=== PATIENT | female | born 1985 | race Caucasian/White ===

== ENCOUNTER 2022-07-06 02:11 | Emergency (ER) | payer SELFPAY ==
[2022-07-06 02:51] LABS: Absolute Lymphocytes (CBC) 2.5 K/uL (0.7-4.9); Hematocrit 40.9 % (36.0-45.0); Lymphocytes % 33.1 % (15.3-44.8); MCV 86.7 fL (80-100); MPV 8.4 fL (7.6-11.3); RBC Red Blood Cell Count 4.71 M/uL (3.86-4.86)
[2022-07-06] MEDS ORDERED: NA CHLORIDE 0.9% 1,000 ML ONE (02:54)
[2022-07-06 03:19] LABS: ALT/SGPT 15 U/L (13-56); AST/SGOT 12 U/L (15-37); Albumin 4.2 g/dL (3.4-5.0); Alkaline Phosphatase 49 U/L (45-117); BUN Blood Urea Nitrogen 12 mg/dL (7-18); Bicarbonate 24 mmol/L (21-32); Bilirubin Total 0.4 mg/dL (0.2-1.0); Glomerular Filtration Rate 79 ml/min (=/>90); Glucose Level 105 mg/dL (74-106); Magnesium 2.3 mg/dL (1.6-2.4); NT PRO-BNP 86 pg/mL (<125); Potassium 3.6 mmol/L (3.5-5.1); Protein, Total 7.6 g/dL (6.4-8.2); Sodium Level 139 mmol/L (136-145)
[2022-07-06 03:20] LABS: Troponin High Sensitivity < 3.0 pg/mL (<58.9)
--- NOTE | 2022-07-06 03:55 | EDPHYS ---
Physician Documentation [facility] Name: Cassy Menchaca Age: 36 yrs Sex: Female : 1985 Arrival Date: 07/06/2022 Time: 02:12 Bed 3 Private MD: ED Physician Vinay Moss HPI: 07/06 03:21 This 36 yrs old Female presents to ER via Wheelchair with complaints of Shortness Of rt Breath, Palpitations. 03:21 Patient presents to the ED with palpitations, dyspnea, weakness. Patient reportedly has rt had intermittent palpitations for about a month now. She states that the symptoms have worsened tonight, that she felt numb all over. She reports a generalized weakness. The patient denies similar symptoms previously. Denies other acute complaints at this time, symptoms are moderate severity, no other aggravating alleviating factors. 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 - Social history:: Smoking status: Patient denies any tobacco usage or history of. - Family history:: not pertinent. ROS: 03:21 Constitutional: Negative for fever, chills, and weight loss, Abdomen/GI: Negative for rt abdominal pain, nausea, vomiting, diarrhea, and constipation, MS/Extremity: Negative for injury and deformity, Skin: Negative for injury, rash, and discoloration, Psych: Negative for depression, anxiety, suicide ideation, homicidal ideation, and hallucinations. 03:21 Cardiovascular: Positive for Chest tightness, palpitation. 03:21 Respiratory: Positive for shortness of breath, Negative for cough. 03:21 Neuro: Positive for weakness, Negative for altered mental status. Exam: 03:21 ECG was reviewed by the Attending Physician. rt 03:22 Constitutional: This is a well developed, well nourished patient who is awake, alert, rt and in no acute distress. Head/Face: Normocephalic, atraumatic. Chest/axilla: Normal chest wall appearance and motion. Nontender with no deformity. No lesions are appreciated. Cardiovascular: Regular rate and rhythm with a normal S1 and S2. No gallops, murmurs, or rubs. Normal PMI, no JVD. No pulse deficits. Respiratory: Lungs have equal breath sounds bilaterally, clear to auscultation and percussion. No rales, rhonchi or wheezes noted. No increased work of breathing, no retractions or nasal flaring. Abdomen/GI: Soft, non-tender, with normal bowel sounds. No distension or tympany. No guarding or rebound. No evidence of tenderness throughout. Skin: Warm, dry with normal turgor. Normal color with no rashes, no lesions, and no evidence of cellulitis. MS/ Extremity: Pulses equal, no cyanosis. Neurovascular intact. Full, normal range of motion. Neuro: Awake and alert, GCS 15, oriented to person, place, time, and situation. Cranial nerves II-XII grossly intact. Motor strength 5/5 in all extremities. Sensory grossly intact. Cerebellar exam normal. Normal gait. Psych: Awake, alert, with orientation to person, place and time. Behavior, mood, and affect are within normal limits. Vital Signs: 02:15 BP 112 / 65; Pulse 66; Resp 17 S; Pulse Ox 100% on R/A; ha1 02:26 BP 112 / 65; Pulse 66; Resp 17; Pulse Ox 100% ; Weight 61.69 kg; Height 5 ft. 9 in. kd3 (175.26 cm); 02:33 Temp 97.7(O); kd3 03:15 BP 102 / 54; Pulse 61; Resp 18 S; Pulse Ox 100% on R/A; ha1 04:01 BP 102 / 61; Pulse 62; Resp 15; Pulse Ox 100% on R/A; kd3 02:26 Body Mass Index 20.08 (61.69 kg, 175.26 cm) kd3 MDM: 02:20 Patient medically screened. rt 04:20 Differential diagnosis: Dysrhythmia, electrolyte disturbance, hypothyroidism, PE, rt pneumonia, pneumothorax. Data reviewed: vital signs, nurses notes, lab test result(s), EKG, radiologic studies. I considered the following discharge prescriptions or medication management in the emergency department Medications were administered in the Emergency Department. See MAR. Independent interpretation of the following test(s) in the Emergency Department X-Ray: My interpretation is No consolidation on my interpretation of the x-ray images. Test considered but Not performed: CT: D-dimer negative, CT angiogram not indicated. Counseling: I had a detailed discussion with the patient and/or guardian regarding: the historical points, exam findings, and any diagnostic results supporting the discharge/admit diagnosis, lab results, radiology results, the need for outpatient follow up, to return to the emergency department if symptoms worsen or persist or if there are any questions or concerns that arise at home. 07/06 02:28 Order name: CBC with Diff; Complete Time: 03:12 rt 07/06 02:28 Order name: CMP; Complete Time: 03:35 rt 07/06 02:28 Order name: Troponin High Sensitivity; Complete Time: 03:35 rt 07/06 02:28 Order name: BNP; Complete Time: 03:35 rt 07/06 02:28 Order name: D-Dimer; Complete Time: 03:12 rt 07/06 02:28 Order name: Test, Serum; Complete Time: 03:20 rt 07/06 02:28 Order name: Chest Single View XRAY rt 07/06 02:28 Order name: TSH; Complete Time: 03:35 rt 07/06 02:28 Order name: Magnesium; Complete Time: 03:35 rt 07/06 03:34 Order name: T4 Free; Complete Time: 03:35 EDMS EC:21 Rate is 68 beats/min. Rhythm is regular, Normal Sinus Rhythm with No ectopy. QRS [place] rt is Normal. MI interval is normal. QRS interval is normal. QT interval is prolonged at 495 msec. No Q waves. T waves are Normal. Administered Medications: 03:08 Drug: NS 0.9% 1000 ml Route: IV; Rate: 1 bolus; Site: left antecubital; ha1 03:58 Follow up: Response: No adverse reaction; IV Status: Completed infusion kd3 Disposition Summary: 07/06/22 03:55 Discharge Ordered Location: Home rt Problem: new rt Symptoms: are resolved rt Condition: Stable rt Diagnosis - Palpitations rt Followup: rt - With: Justen Paul MD - When: 2 - 3 days - Reason: Discharge Instructions: - Discharge Summary Sheet rt - Palpitations rt Forms: - Medication Reconciliation Form rt - Thank You Letter rt - Antibiotic Education rt - Prescription Opioid Use rt Signatures: Dispatcher [facility] Demi Briggs RN RN kd3 Fanny Almanzar RN RN ha1 Vinay Moss MD MD rt
--- NOTE | 2022-07-06 03:55 | ER ---
Nurse's Notes [facility] Name: Cassy Menchaca Age: 36 yrs Sex: Female : 1985 Arrival Date: 07/06/2022 Time: 02:12 Bed 3 Private MD: Diagnosis: Palpitations Presentation: 07/06 02:26 Chief complaint: Patient states: I started to feel bad around 12:47. I started having a kd3 hard time breathing but I went ahead and went to sleep but I woke up with ringing in my ears and numbness and tingling all over and worsening shortness of breath. I feel a bit better now but I still feel bad. Coronavirus screen: Vaccine status: Patient reports being unvaccinated. Ebola Screen: No symptoms or risks identified at this time. Initial Sepsis Screen: Does the patient meet any 2 criteria? No. Patient's initial sepsis screen is negative. Does the patient have a suspected source of infection? No. Patient's initial sepsis screen is negative. Risk Assessment: Do you want to hurt yourself or someone else? Patient reports no desire to harm self or others. Onset of symptoms was July 06, 2022. 02:26 Method Of Arrival: Wheelchair kd3 02:26 Acuity: [place] 3 kd3 Triage Assessment: 02:30 General: Appears uncomfortable, Behavior is calm, cooperative. Pain: Denies pain. kd3 Respiratory: Reports shortness of breath at rest Onset: The symptoms/episode began/occurred gradually, the patient has moderate shortness of breath. 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 - Social history:: Smoking status: Patient denies any tobacco usage or history of. - Family history:: not pertinent. Screenin:15 [facility] ED Fall Risk Assessment (Adult) History of falling in the last 3 months, ha1 including since admission No falls in past 3 months (0 pts) Confusion or Disorientation No (0 pts) Intoxicated or Sedated No (0 pts) Impaired Gait No (0 pts) Mobility Assist Device Used No (0 pt) Altered Elimination No (0 pt) Score/Fall Risk Level 0 - 2 = Low Risk Oriented to surroundings, Maintained a safe environment, Educated pt \T\ family on fall prevention, incl call for assistance when getting out of bed, Hourly rounding (assess needs \T\ fall precautionary measures) done. 03:40 Abuse screen: Denies threats or abuse. Denies injuries from another. Nutritional ha1 screening: No deficits noted. Tuberculosis screening: No symptoms or risk factors identified. Assessment: 02:18 General: Appears comfortable, Behavior is calm, cooperative. Pain: Denies pain. Neuro: ha1 Level of Consciousness is awake, alert, obeys commands, Oriented to person, place, time. Cardiovascular: Heart tones S1 S2 present Patient's skin is warm and dry. Rhythm is sinus rhythm. Cardiovascular: Reports chest palpitations. Respiratory: Airway is patent. Respiratory: Respiratory effort is even, unlabored, Respiratory pattern is regular, symmetrical, Breath sounds are clear bilaterally. Respiratory: Reports shortness of breath at rest. GI: Abdomen is flat, non-distended. : No signs and/or symptoms were reported regarding the genitourinary system. EENT: No deficits noted. No signs and/or symptoms were reported regarding the EENT system. Derm: Skin is pink, warm \T\ dry. Musculoskeletal: Circulation, motion, and sensation intact. Range of motion: intact in all extremities. 02:18 Reassessment: Patient and/or family updated on plan of care and expected duration. Pain ha1 level reassessed. Patient is alert, oriented x 3, equal unlabored respirations, skin warm/dry/pink. Vital Signs: 02:15 BP 112 / 65; Pulse 66; Resp 17 S; Pulse Ox 100% on R/A; ha1 02:26 BP 112 / 65; Pulse 66; Resp 17; Pulse Ox 100% ; Weight 61.69 kg; Height 5 ft. 9 in. kd3 (175.26 cm); 02:33 Temp 97.7(O); kd3 03:15 BP 102 / 54; Pulse 61; Resp 18 S; Pulse Ox 100% on R/A; ha1 04:01 BP 102 / 61; Pulse 62; Resp 15; Pulse Ox 100% on R/A; kd3 02:26 Body Mass Index 20.08 (61.69 kg, 175.26 cm) kd3 ED Course: 02:12 Patient arrived in ED. ja2 02:12 Vinay Moss MD is Attending Physician. rt 02:15 Patient has correct armband on for positive identification. Placed in gown. Bed in low ha1 position. Call light in reach. Side rails up X 1. 02:30 Triage completed. kd3 02:30 Arm band placed on right wrist. kd3 02:40 Inserted saline lock: 20 gauge in left antecubital area, using aseptic technique. Blood ha1 collected. 02:47 Fanny Almanzar RN is Primary Nurse. ha1 02:48 Chest Single View XRAY In Process Unspecified. EDMS 03:09 BNP Sent. ha1 03:09 Troponin High Sensitivity Sent. ha1 03:09 CMP Sent. ha1 03:54 Justen Paul MD is Referral Physician. rt 04:01 No provider procedures requiring assistance completed. IV discontinued, intact, kd3 bleeding controlled, No redness/swelling at site. Pressure dressing applied. Administered Medications: 03:08 Drug: NS 0.9% 1000 ml Route: IV; Rate: 1 bolus; Site: left antecubital; ha1 03:58 Follow up: Response: No adverse reaction; IV Status: Completed infusion kd3 Medication: 04:02 VIS not applicable for this client. kd3 Outcome: 03:55 Discharge ordered by . rt 04:01 Discharged to home ambulatory. kd3 04:01 Condition: stable 04:01 Discharge instructions given to patient, family, Instructed on discharge instructions, follow up and referral plans. Demonstrated understanding of instructions, follow-up care. 04:02 Patient left the ED. kd3 Signatures: Dispatcher [employer] EDMS Bernadette Jacobo2 Demi Jacques RN RN kd3 Fanny Almanzar, PADMAJA RN ha1 Vinay Moss MD MD rt
[2022-07-06 04:41] VITALS: O2SAT 100
[2022-07-06 04:43] VITALS: TEMP 97.7
[2022-07-06 04:46] VITALS: BP 102/61
--- NOTE | 2022-07-06 10:41 | RAD REPORT ---
EXAM DESCRIPTION: RAD - Chest Single View - 07/06/2022 2:46 am CLINICAL HISTORY: 36 years Female PALPITATIONS COMPARISON: None FINDINGS: Lung volumes adequate. Cardiac silhouette is normal. No pneumothorax. No large pleural effusion. No focal consolidation. No acute bony finding. IMPRESSION: No acute cardiopulmonary findings. Electronically signed by: Anabela Vences MD 07/06/2022 2:56 AM [employer] . Due to temporary technical issues with the PACS/Fluency reporting system, reports are being signed by the in house radiologists without review as a courtesy to insure prompt reporting. The interpreting radiologist is fully responsible for the content of the report.
--- NOTE | 2022-07-06 17:29 | EKG ---
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
== END 2022-07-06 04:02 | disposition home or self-care (01) ==
LOC: ER 02:11
DX: R00.2 Palpitations (principal); R07.89 Other chest pain
CPT/HCPCS: 36415; 71045; 80053; 83735; 83880; 84439; 84443; 84484; 84703; 85025; 85379; 93005; J7030

== ENCOUNTER 2023-11-08 14:57 | Emergency (ER) | payer OTHER ==
--- OUTSIDE RECORDS SUMMARY | 2023-11-08 15:00 | XMS REPORT | Continuity of Care Document ---
Author Name Unknown Address [address] [facility] [address] [place] [address] [facility] thconnect Address [address] [facility] [address] [place] [address] Care Team Providers Care Delivery Analyst Name Role Phone Brian Huang Darion Primary Care Physician TACHO HUMPHREY Attending Clinician Unavail able PARKER DREW Attending Clinician Unavailable ROSE WILKERSON Attending Clinician Unavailable PARKER DREW Attending Clinician UnavailBELLE Hurtado Attending Clinician Unavailable ANDRES HASTINGS Attending Clinician Unavailab NAI Morales Attending Clinician Unavailable White_Deandre Attending Clinician Unavailable AMBREEN_POOJA Attending Clinician Unavailable Rutledge_L Attending Clinician Unavailable Megan Crocker Attending Clinician Unavaila JO Katz Attending Clinician Unavailable White_M Admitting Clinician Unavailable AMBREEN_FARDOTTY Admitting Clinician Unavailable Rutledge_L Admitting Clinician Unavailable Payers Payer Name Policy Type Policy Number Effective Date Expirati on Date Source [facility] [id number] 2022 00:00:00 [place]MEDICAID) [id number] [facility] [id number] [place] [id number] 2019 00:00:00 [place] [id number] 2019 00:00:00 Problems Condition Name Condition Details Condition Category Status Onset Date Resolution Date Last Treatment Date Treating Clinician Comments Source Postoperat robert hypothyroi dism Postoperat robert hypothyroi dism Disease Active 8-29 00:00: 00 [facility] Papillary thyroid carcinoma Papillary thyroid carcinoma Disease Active 5- 00:00: 00 [facility] Mitral valve prolapse Mitral Valve Prolapse Problem Active 2-03 00:00: 00 [facility] Persistent insomnia Persistent Insomnia Problem Active 05-22 00:00: 00 [facility] Menstrual migraine Menstrual Migraine Problem Active 05-22 00:00: 00 [facility] Polymenorr hea Polymenorr hea Problem Active 05-22 00:00: 00 [facility] Rupture of uterus during AND/OR after labor Rupture of Uterus During AND/OR after Labor Problem Active 05-22 00:00: 00 [facility] Hot sweats Hot Sweats Problem Active 05-22 00:00: 00 [facility] Right lower quadrant pain Right Lower Quadrant Pain Problem Active 05-22 00:00: 00 [facility] History of anemia - iron deficient History of Anemia - Iron Deficient Problem Active 05-22 00:00: 00 [facility] History of tubal ligation History of Tubal Ligation Problem Active 05-22 00:00: 00 [facility] Social History Social Habit Start Date Stop Date Quantity Comments Source Sexual orientation 2022-09-19 11:36:31 Heterosexual (finding) [facility] Alcoholic beverage intake 2023-06-26 00:00:00 2023-06-26 00:00:00 Lifetime non-drinker (finding) [facility] History of Social function 2023-06-26 00:00:00 2023-06-26 00:00:00 [facility] Alcohol intake 2022-12-26 00:00:00 2022-12-26 00:00:00 Lifetime non-drinker (finding) [facility] Exposure to SARS-CoV-2 (event) 2022-09-24 00:00:00 2022-10-04 09:19:00 Not sure [facility] Tobacco use and exposure 2022-09-19 00:00:00 2022-09-19 00:00:00 Smokeless tobacco non-user [facility] Cigarettes smoked current (pack per day) - Reported 2022-09-19 00:00:00 2022-09-19 00:00:00 [facility] Cigarette pack-years 2022-09-19 00:00:00 2022-09-19 00:00:00 [facility] History of tobacco use 2015-10-07 00:00:00 2020-11-05 00:00:00 Cigarette Smoker [facility] Sex assigned at 1985 00:00:00 1985 00:00:00 F [facility] Smoking Status Start Date Stop Date Source Ex-smoker 2022-09-19 00:00:00 2022-09-19 00:00:00 [facility] Medications Ordered Medication Name Filled Medication Name Start Date Stop Date Current Medication? Ordering Clinician Indication Dosage Frequency Signature (SIG) Comments Components Source levothyroxi ne (Synthroid, Levoxyl) 100 MCG tablet 11-02 00:00: 00 Yes 88ug 88 mcg. [facility] HYDROcodone -acetaminop hen (Warner) 7.5-325 MG tablet 10-30 00:00: 00 01-03 00:00 :00 No [id number] 1{tbl} Q6H Take 1 tablet by mouth every 6 (six) hours if needed for moderate pain. [facility] ondansetron ODT (Zofran-ODT ) 4 MG disintegrat ing tablet 08-30 00:00: 00 Yes 4mg Take 4 mg by mouth every 8 (eight) hours if needed. DISSOLVE 1 TABLET IN MOUTH [facility] Vital Signs Vital Name Observation Time Observation Value Comments S ource Body height 2023-06-26 17:47:00 [facility]3 [facility] weight 2023-06-26 17:47:00 [facility]504 [facility] BMI 2023-06-26 17:47:00 20.67 kg/m2 [facility] Body height 2023-01-03 19:09:[facility] 2023-01-03 19:09:00 61.236 [facility] BMI 2023-01-03 19:09:00 19.94 [facility]m2 [facility] Systolic blood pressure 2023-01-03 19:09:00 94 mm[Hg] [facility] Diastolic blood pressure 2023-01-03 19:09:00 60 mm[Hg] [facility] Heart rate 2023-01-03 19:09:00 69 /min [facility] Body height 2022-12-26 17:01:00 175.3 [facility] Body weight 2022-12-26 17:01:00 62.143 [facility] BMI 2022-12-26 17:01:00 20.23 kg/m2 [facility] Body height 2022-11-07 19:08:00 175.3 cm [facility] Body weight 2022-11-07 19:08:00 62.143 [facility] BMI 2022-11-07 19:08:00 20.23 kg/m2 [facility] Body height 2022-10-06 19:38:00 175.3 cm [facility] Body weight 2022-10-06 19:38:00 61.689 [facility] BMI 2022-10-06 19:38:00 20.08 kg/m2 [facility] Systolic blood pressure 2022-09-19 19:31:00 95 mm[Hg] [facility] Diastolic blood pressure 2022-09-19 19:31:00 58 mm[Hg] [facility] Heart rate 2022-09-19 19:31:00 63 /min [facility] height 2022-09-19 19:31:00 175.3 [facility] Body weight 2022-09-19 19:31:00 62.143 [facility] BMI 2022-09-19 19:31:00 20.23 kg/m2 [facility] BP Diastolic 2021-08-17 00:00:00 70 mm[Hg] [facility] Height 2021-08-17 00:00:00 69 [in_i] [facility] BMI (Body Mass Index) 2021-08-17 00:00:00 18 kg/m2 [facility] BP Systolic 2021-08-17 00:00:00 113 mm[Hg] [facility] Body Weight 2021-08-17 00:00:00 122 [lb_av] [facility] BP Diastolic 2019-11-22 00:00:00 63 mm[Hg] [facility] Height 2019-11-22 00:00:00 69 [in_i] [facility] BMI (Body Mass Index) 2019-11-22 00:00:00 18.2 kg/m2 [facility] BP Systolic 2019-11-22 00:00:00 102 mm[Hg] [facility] Body Weight 2019-11-22 00:00:00 123 [lb_av] [facility] BP Diastolic 2019-11-01 00:00:00 63 mm[Hg] [facility] Height 2019-11-01 00:00:00 69 [in_i] [facility] BMI (Body Mass Index) 2019-11-01 00:00:00 18.1 kg/m2 [facility] BP Systolic 2019-11-01 00:00:00 99 mm[Hg] [facility] Body Weight 2019-11-01 00:00:00 122.4 [lb_av] [facility] BP Diastolic 2019-10-03 00:00:00 76 mm[Hg] [facility] Height 2019-10-03 00:00:00 69 [in_i] [facility] BMI (Body Mass Index) 2019-10-03 00:00:00 18.3 kg/m2 [facility] BP Systolic 2019-10-03 00:00:00 114 mm[Hg] [facility] Body Weight 2019-10-03 00:00:00 124 [lb_av] [facility] BP Diastolic 2019-06-26 00:00:00 66 mm[Hg] [facility] Height 2019-06-26 00:00:00 69 [in_i] [facility] BMI (Body Mass Index) 2019-06-26 00:00:00 18.4 kg/m2 [facility] BP Systolic 2019-06-26 00:00:00 97 mm[Hg] [facility] Body Weight 2019-06-26 00:00:00 124.9 [lb_av] [facility] Height 2019-06-10 00:00:00 69 [in_i] [facility] BP Diastolic 2019-05-31 00:00:00 69 mm[Hg] [facility] Height 2019-05-31 00:00:00 69 [in_i] [facility] BMI (Body Mass Index) 2019-05-31 00:00:00 18.5 kg/m2 [facility] BP Systolic 2019-05-31 00:00:00 105 mm[Hg] [facility] Body Weight 2019-05-31 00:00:00 125.4 [lb_av] [facility] BP Diastolic 2019-05-21 00:00:00 62 mm[Hg] [facility] Height 2019-05-21 00:00:00 69 [in_i] [facility] BMI (Body Mass Index) 2019-05-21 00:00:00 18.1 kg/m2 [facility] BP Systolic 2019-05-21 00:00:00 112 mm[Hg] [facility] Body Weight 2019-05-21 00:00:00 122.3 [lb_av] [facility] Procedures Procedure Date / Time Performed Performing Clinician Source BASIC METABOLIC PANEL 2022-10-06 21:55:00 Bernadine [facility] TSH 2022-10-06 21:55:00 Bernadine [facility] D-DIMER, QUANTITATIVE 2022-10-06 21:55:00 Bernadine [facility] unlisted imaging order 2021-08-17 00:00:00 [facility] MAMMO, diagnostic, digital, unilateral 2021-08-17 00:00:00 [facility] Hysterectomy 2019-10-07 00:00:00 [facility] unlisted imaging order 2019-05-21 00:00:00 [facility] Bilateral Tubal Ligation 2012-01-02 00:00:00 [facility] Delivery 2012-01-02 00:00:00 [facility] Delivery 2009-02-04 00:00:00 [facility] Delivery 2008-02-02 00:00:00 [facility] Encounters Start Date/Time End Date/Time Encounter Type Admission Type Attending Clinicians Care Facility Care Department Encounter ID Source 2023-03-02 08:11:17 Outpatient TACHO HUMPHREY [facility] [id number] [facility] 2022-11-16 08:52:[address] [facility] [id number] [facility] 2022-11-13 05:28:[address] [facility] [id number] [facility] 2022-11-12 21:09:[address] [facility] [id number] [facility] 2022-10-28 09:19:[address] [facility] [id number] [facility] 2022-10-25 12:40:[address] [facility] [id number] [facility] 2022-10-20 08:27:[address] [facility] [id number] [facility] 2022-10-12 05:50:[address] [facility] [id number] [facility] 2022-10-07 10:56:[address] [facility] [id number] [facility] 2022-10-06 17:40:[address] [facility] [id number] [facility] 2022-09-20 16:37:[address] [facility] [id number] [facility] 2022-09-19 11:26:[address] [facility] [id number] [facility] 2022-08-17 15:44:[address] [facility] [id number] [facility] 2024-06-24 12:30:00 2024-06-24 12:30:00 Outpatient PARKER DREW [facility] [id number] [facility] 2023-06-26 13:45:00 2023-06-26 13:45:00 Office Visit BernadineParker [facility] [id number] [id number] [facility] 2023-03-03 11:10:00 2023-04-01 23:59:00 Outpatient TACHO HUMPHREY [facility] [id number] [facility] 2023-01-03 14:00:00 2023-01-03 15:46:35 Office Visit ROSE WILKERSON [facility] [id number] [facility] 2022-12-26 12:00:00 2022-12-26 12:12:22 Office Visit Parker Drew [facility] [address] [id number] [facility] 2022-12-22 13:00:00 2022-12-22 13:00:00 Outpatient PARKER DREW [facility] [id number] [facility] 2022-11-07 14:00:00 2022-11-07 14:34:58 Office Visit Parker Drew [facility] [address] [id number] [facility] 2022-11-01 11:16:00 2022-11-02 10:01:00 Outpatient PARKER DREW [facility] [id number] [facility] 2022-11-01 11:00:00 2022-11-01 11:00:00 Outpatient PARKER DREW [facility] [id number] [facility] 2022-10-06 15:30:00 2022-10-06 16:02:22 Office Visit Parker Drew [facility] [address] [id number] [facility] 2022-10-06 14:30:00 2022-10-06 14:30:00 Outpatient BELLE SALEH [facility] [id number] [facility] 2022-09-22 12:00:00 2022-09-22 12:00:00 Outpatient PARKER DREW [facility] [id number] [facility] 2022-09-19 14:40:00 2022-09-19 15:20:15 Office Visit Rose Wilkerson [facility] [id number] [facility] 2022-08-04 08:52:00 2022-08-04 08:52:00 Outpatient ANDRES GRAY [facility] [id number] [facility] 2022-07-28 14:27:00 2022-07-28 14:27:00 Outpatient JASMIN ANDRES HASTINGS [facility] [id number] [facility] 2022-07-27 16:20:00 2022-07-27 16:20:00 Outpatient AJSMIN ANDRES HASTINGS [facility] [id number] [facility] 2021-09-15 13:56:00 2021-09-15 13:56:00 Outpatient NAI SULTANA [facility] [id number] [facility] 2021-08-19 10:38:00 2021-08-19 10:38:00 Outpatient White_M [facility] [id number] [facility] 2021-08-17 04:31:00 2021-08-17 04:31:00 Outpatient White_M [facility] [id number] [facility] 2021-08-17 00:00:00 2021-08-17 00:00:00 TENA Amador-BC: [address] [address] , Ph. [phone] MM[facility] [id number] [facility] 2021-06-02 08:11:00 2021-06-02 08:11:00 Outpatient AMBREEN_TOYA FERNANDO [id number] [facility] 2021-03-12 04:15:00 2021-03-12 04:15:00 Outpatient AMBREENWILD STORM [facility] [id number] [facility] 2020-03-25 02:28:00 2020-03-25 02:28:00 Outpatient Rutledge_L MMG [facility] [id number] [facility] 2019-11-24 11:02:00 2019-11-24 11:02:00 Outpatient Rutledge_L MMG [facility] [id number] [facility] 2019-11-22 11:17:00 2019-11-22 11:17:00 Outpatient Rutledge_L MMG [facility] [id number] [facility] 2019-11-22 00:00:00 2019-11-22 00:00:00 Megan Crocker MD: [address] [place], [place] [id number] , Ph. [phone] MM[facility] [id number] [facility] 2019-11-12 03:45:00 2019-11-12 03:45:00 Outpatient Rutledge_L [facility]G [facility] [id number] [facility] 2019-11-03 02:13:00 2019-11-03 02:13:00 Outpatient Rutledge_L MMG [facility] [id number] [facility] 2019-11-01 11:07:00 2019-11-01 11:07:00 Outpatient Rutledge_L MMG [facility] [id number] [facility] 2019-11-01 00:00:00 2019-11-01 00:00:00 Megan Crocker MD: [address] [place] [address] , Ph. [phone] MM[facility] [id number] [facility] 2019-10-29 10:30:00 2019-10-29 10:30:00 [place]patient [place] [id number] [facility] 2019-10-23 10:05:00 2019-10-23 10:05:00 Outpatient Rutledge_L MMG MMG [id number] [facility] 2019-10-15 10:12:00 2019-10-15 10:12:00 Outpatient Rutledge_L MMG MMG [id number] [facility] 2019-10-10 06:00:00 2019-10-10 06:00:00 Outpatient Megan Beach [facility] [id number] [facility] 2019-10-03 10:50:00 2019-10-03 10:50:00 Outpatient Rutledge_L MMG [facility] [id number] [facility] 2019-10-03 00:00:00 2019-10-03 00:00:00 Megan Crocker MD: [address] [place] [address] , Ph. [phone] [facility] [id number] [facility] 2019-09-26 11:29:00 2019-09-26 11:29:00 Outpatient Rutledge_L MMG [facility] [id number] [facility] 2019-09-26 11:28:00 2019-09-26 11:28:00 Outpatient Rutledge_L MMG [facility] [id number] [facility] 2019-08-01 12:49:00 2019-08-01 12:49:00 Outpatient Rutledge_L MMG MMG [id number] [facility] 2019-07-09 04:01:00 2019-07-09 04:01:00 Outpatient Rutledge_L MMG MMG [id number] [facility] 2019-06-30 11:56:00 2019-06-30 11:56:00 Outpatient Rutledge_L MMG MMG [id number] [facility] 2019-06-26 11:37:00 2019-06-26 11:37:00 Outpatient Rutledge_L MMG MMG [id number] [facility] 2019-06-26 09:00:00 2019-06-26 09:00:00 Outpatient Megan Beach [facility] [id number] [facility] 2019-06-26 00:00:00 2019-06-26 00:00:00 Megan Crocker MD: [address] [place] [phone] , Ph. [phone] MM[facility] [id number] [facility] 2019-06-13 11:19:00 2019-06-13 11:19:00 Outpatient Rutledge_L MMG MMG [id number] [facility] 2019-06-11 10:56:00 2019-06-11 10:56:00 Outpatient Rutledge_L MMG MMG [id number] [facility] 2019-06-10 04:51:00 2019-06-10 04:51:00 Outpatient Rutledge_L MMG MMG [id number] [facility] 2019-06-10 00:00:00 2019-06-10 00:00:00 Megan Crocker MD: [address] [place] [phone] , Ph. [phone] MM[facility] [id number] [facility] 2019-06-04 12:56:00 2019-06-04 12:56:00 Outpatient Rutledge_L MMG MMG [id number] [facility] 2019-06-04 12:56:00 2019-06-04 12:56:00 Outpatient Rutledge_L MMG MMG [id number] [facility] 2019-06-04 12:56:00 2019-06-04 12:56:00 Outpatient Rutledge_L MMG MMG [id number] [facility] 2019-06-03 12:06:00 2019-06-03 12:06:00 Outpatient Rutledge_L MMG MMG [id number] [facility] 2019-05-31 15:36:00 2019-05-31 15:36:00 Outpatient Megan Beach [facility] [id number] [facility] 2019-05-31 02:10:00 2019-05-31 02:10:00 Outpatient Rutledge_L MMG MMG [id number] [facility] 2019-05-31 00:00:00 2019-05-31 00:00:00 Megan Crocker MD: 600 [facility] [address] [place] [address] , Ph. [phone] [facility] [id number] [facility] 2019-05-23 12:16:00 2019-05-23 12:16:00 Outpatient Rutledge_L MMG MMG [id number] [facility] 2019-05-22 10:37:00 2019-05-22 10:37:00 Outpatient Rutledge_L MMG MMG [id number] [facility] 2019-05-21 11:30:00 2019-05-21 11:30:00 Outpatient DENG JO CARBAJAL [facility] [id number] [facility] 2019-05-21 01:43:00 2019-05-21 01:43:00 Outpatient Rutledge_L MMG MMG [id number] [facility] 2019-05-21 00:00:00 2019-05-21 00:00:00 Jo Carbajal GURVINDER: [address] [facility] [address] [address] , Ph. [phone] [facility] [id number] [facility] 2019-05-14 04:39:00 2019-05-14 04:39:00 Outpatient Rutledge_L MMG MMG [id number] [facility] Results Test Description Test Time Test Comments Results Result Co mments Source [facility] Health[facility]er, [id number] 13:00:00* Test Item Value Reference Range Interpretation Comments D-DIMER, QUANTITATIVE (test code = 88957-8) 0.57 See_Comment H The D-Dimer test is used frequently to excludean acute PE or DVT. In patients with a low tomoderate clinical risk assessment and a D-Dimerresult <0.50 mcg/mL FEU, the likelihood of a PEor DVT is very low. However, a thromboembolicevent should not be excluded solely on the basisof the D-Dimer level. Increased levels of D-Dimerare associated with a PE, DVT, DIC, malignancies,inflammati on, sepsis, surgery, trauma, ,and advancing patient age.[Chintan 2006 11:295(2):199-207] For additional information, please refer to:http://education.[employer]/faq/F AQ149(This link is being provided for informational/education al purposes only) [Automated message] The system which generated this result transmitted reference range: <0.50 mcg/mL FEU. The reference range was not used to interpret this result as normal/abnormal. RAC (test code = RAC) Performing Organization Information: ? ?Site ID: [id number] ? ?Name: [facility] ? ?Address: [address] [place] [address] ? ?Director: ANUSHA DAWKINS MD Lab Interpretation (test code = 57555-3) [facility]normal [id number] 13:00:00* Test Item Value Reference Range Interpretation Comme nts TSH (test code = 3016-3) 2.05 mIU/L ?Referen ce Range ?> or = 20 Years ?0.40-4.50 ? Ranges ?First trimester ? ?0.26-2.66 ?Second trimester ? 0.55-2.73 ?Third trimester ? ?0.43-2.91 RAC (test code = RAC) Performing Organization Information: ? ?Site ID: [facility] ? ?Name: [facility] ? ?Address: [address] [place] [id number] ? ?Director: ANUSHA DAWKINS MD AR [id number] 05:00:00* Test Item Value Reference Range Interpretation Comme [facility] Surgical pathology study (test code = 51162-9) see separate pathology report. [facility] Differential panel - [id number] 09:15:00 * Test Item Value Reference Range Interpretation Comme [facility] white blood count (test code = white blood count) 5.7 K/uL 4.0-11.5 red blood count (test code = red blood count) 4.62 M/uL 3.80-5.20 hemoglobin (test code = hemoglobin) 13.6 g/dL 10.5-15.7 hematocrit (test code = hematocrit) 41.8 % 34.0-50.0 MCV [Entitic volume] (test c ode = 69262-4) 90.5 fL 86-100 mean corpuscular hemoglobin (test code = mean corpuscular hemoglobin) 29.4 pg 26.2-33.4 mean corpuscular HGB conc (t est code = mean corpuscular HGB conc) 32.5 g/dL 30-34 red cell distribution width (test code = red cell distribution width) 13.0 % 12.0-15.5 platelet count (test code = platelet count) 292 K/uL 165-450 mean platelet volume (test c ode = mean platelet volume) 10.6 fL 9.4-12.6 Segmented neutrophils/100 leukocytes in Blood (test code = 66814-3) 56.8 % 44.4-80.1 Immature granulocytes [#/vol ume] in Blood (test code = 99549-5) 0.0 K/uL 0.0-0.03 lymphocyte% (test code = lymphocyte%) 34.4 % 10.0-50.0 mono % (test code = mono %) 6.8 % 3.6-12.0 eos % (test code = eos %) 0.9 % 0.0-5.4 Basophils/100 leukocytes in Unspecified specimen (test code = 32394-5) 0.9 % 0.1-1.2 Band form neutrophils [#/vol ume] in Blood (test code = 59184-1) 3.25 K/uL 1.56-6.13 Lymphocytes [#/volume] in Unspecified specimen by Automated count (test code = 12588-3) 2.0 K/uL 1.18-3.74 mono # (test code = mono #) 0.39 K/uL 0.24-0.86 eos # (test code = eos #) 0.05 K/uL 0.04-0.36 basophil # (test code = baso rosie #) 0.05 K/uL 0.01-0.08 NRBC% (test code = NRBC%) 0 /100 WBC 0-0.2 NRBC# (test code = NRBC#) 0 K/uL [facility] [Units/volume] in Serum or [id number] 09:15:00* Test Item Value Reference Range Interpretation Comme nts HCG quantitative (test code = HCG quantitative) <0.1 0-5 [facility] - [id number] 09:15:00 * Test Item Value Reference Range Interpretation Comme nts white blood count (test code = white blood count) 5.7 K/uL 4.0-11.5 red blood count (test code = red blood count) 4.62 M/uL 3.80-5.20 hemoglobin (test code = hemoglobin) 13.6 g/dL 10.5-15.7 hematocrit (test code = hematocrit) 41.8 % 34.0-50.0 MCV [Entitic volume] (test c ode = 30656-0) 90.5 fL 86-100 mean corpuscular hemoglobin (test code = mean corpuscular hemoglobin) 29.4 pg 26.2-33.4 mean corpuscular HGB conc (t est code = mean corpuscular HGB conc) 32.5 g/dL 30-34 red cell distribution width (test code = red cell distribution width) 13.0 % 12.0-15.5 platelet count (test code = platelet count) 292 K/uL 165-450 mean platelet volume (test c ode = mean platelet volume) 10.6 fL 9.4-12.6 Segmented neutrophils/100 leukocytes in Blood (test code = 30978-7) 56.8 % 44.4-80.1 Immature granulocytes [#/vol ume] in Blood (test code = 05394-8) 0.0 K/uL 0.0-0.03 lymphocyte% (test code = lymphocyte%) 34.4 % 10.0-50.0 mono % (test code = mono %) 6.8 % 3.6-12.0 eos % (test code = eos %) 0.9 % 0.0-5.4 Basophils/100 leukocytes in Unspecified specimen (test code = 97766-0) 0.9 % 0.1-1.2 Band form neutrophils [#/vol ume] in Blood (test code = 37301-3) 3.25 K/uL 1.56-6.13 Lymphocytes [#/volume] in Unspecified specimen by Automated count (test code = 29328-6) 2.0 K/uL 1.18-3.74 mono # (test code = mono #) 0.39 K/uL 0.24-0.86 eos # (test code = eos #) 0.05 K/uL 0.04-0.36 basophil # (test code = baso rosie #) 0.05 K/uL 0.01-0.08 NRBC% (test code = NRBC%) 0 /100 WBC 0-0.2 NRBC# (test code = NRBC#) 0 K/uL [facility] [Units/volume] in Serum or [id number] 09:15:00* Test Item Value Reference Range Interpretation Comme nts HCG quantitative (test code = HCG quantitative) <0.1 0-5 [facility], LB + [id number] 00:00:00* Test Item Value Reference Range Interpretation Comme nts HPV type-detect 3.0 by next gen sequencing (reflex to HPV-16 risk assessment status) (test code = HPV type-detect 3.0 by next gen sequencing (reflex to HPV-16 risk assessment status)) not detected liquid Pap test (test code = liquid Pap test) normal [facility], + [id number] 00:00:00* Test Item Value Reference Range Interpretation Comme nts HPV type-detect 3.0 by next gen sequencing (reflex to HPV-16 risk assessment status) (test code = HPV type-detect 3.0 by next gen sequencing (reflex to HPV-16 risk assessment status)) not detected liquid Pap test (test code = liquid Pap test) normal [facility] [id number] 12:00:00* Test Item Value Reference Range Interpretation Comme [facility] Surgical pathology study (test code = 45006-4) see separate pathology report. [facility] [id number] 12:00:00* Test Item Value Reference Range Interpretation Comme [facility] Surgical pathology study (test code = 91662-6) see separate pathology report. [facility]ollitropin [Units/volume] in Serum or [id number] 10:45:00* Test Item Value Reference Range Interpretation Comme nts follicle stimulating hormone (test code = follicle stimulating hormone) 2.3 mIU/mL . [facility]utropin [Units/volume] in Serum or [id number] 10:45:00* Test Item Value Reference Range Interpretation Comme nts luteinizing hormone (test co de = luteinizing hormone) 1.7 mIU/mL . [facility]gesterone [Mass/volume] in Serum or [id number] 10:45:00* Test Item Value Reference Range Interpretation Comme [facility] Progesterone [Mass/volume] i n Serum or Plasma (test code = 2839-9) 18.4 NG/mL . [facility] GroupProlactin [Mass/volume] in Serum or [id number] 10:45:00* Test Item Value Reference Range Interpretation Comme [facility] Prolactin [Mass/volume] in S tano or Plasma (test code = 2842-3) 11.8 NG/mL 4.8-23.3 [facility] GroupEstradiol (E2) [Mass/volume] in Serum or [id number] 10:45:00* Test Item Value Reference Range Interpretation Comme [facility] estradiol serum (test code = estradiol serum) 91.3 pg/mL . [facility]Follitropin [Units/volume] in Serum or [id number] 10:45:00* Test Item Value Reference Range Interpretation Comme nts follicle stimulating hormone (test code = follicle stimulating hormone) 2.3 mIU/mL . [facility] GroupLut[facility]in [Units/volume] in Serum or [id number] 10:45:00* Test Item Value Reference Range Interpretation Comme nts luteinizing hormone (test co de = luteinizing hormone) 1.7 mIU/mL . [facility] GroupProgesterone [Mass/volume] in Serum or [id number] 10:45:00* Test Item Value Reference Range Interpretation Comme nts Progesterone [Mass/volume] i n Serum or Plasma (test code = 2839-9) 18.4 NG/mL . [facility] GroupProlactin [Mass/volume] in Serum or [id number] 10:45:00* Test Item Value Reference Range Interpretation Comme nts Prolactin [Mass/volume] in S tano or Plasma (test code = 2842-3) 11.8 NG/mL 4.8-23.3 [facility] HospitalEstradiol (E2) [Mass/volume] in Serum or [id number] 10:45:00* Test Item Value Reference Range Interpretation Comme nts estradiol serum (test code = estradiol serum) 91.3 pg/mL . [facility] Auto Differential panel - [id number] 10:42:00 * Test Item Value Reference Range Interpretation Comme nts white blood count (test code = white blood count) 5.6 K/uL 4.0-11.5 red blood count (test code = red blood count) 5.12 M/uL 3.80-5.20 hemoglobin (test code = hemoglobin) 14.7 g/dL 10.5-15.7 hematocrit (test code = hematocrit) 46.4 % 34.0-50.0 Erythrocyte mean corpuscular volume [Entitic volume] (test code = 66355-2) 90.6 fL 86-100 mean corpuscular hemoglobin (test code = mean corpuscular hemoglobin) 28.7 pg 26.2-33.4 mean corpuscular HGB conc (t est code = mean corpuscular HGB conc) 31.7 g/dL 30-34 red cell distribution width (test code = red cell distribution width) 12.9 % 12.0-15.5 platelet count (test code = platelet count) 325 K/uL 165-450 mean platelet volume (test c ode = mean platelet volume) 10.9 fL 9.4-12.6 Neutrophils.segmented/100 leukocytes in Blood (test code = 37299-6) 58.2 % 44.4-80.1 Granulocytes Immature [#/vol ume] in Blood (test code = 85954-3) 0.0 K/uL 0.0-0.03 lymphocyte% (test code = lymphocyte%) 31.6 % 10.0-50.0 mono % (test code = mono %) 8.4 % 3.6-12.0 eos % (test code = eos %) 0.5 % 0.0-5.4 Basophils/100 leukocytes in Unspecified specimen (test code = 79205-6) 0.9 % 0.1-1.2 Neutrophils.band form [#/vol ume] in Blood (test code = 60250-5) 3.24 K/uL 1.56-6.13 Lymphocytes [#/volume] in Unspecified specimen by Automated count (test code = 84643-4) 1.8 K/uL 1.18-3.74 mono # (test code = mono #) 0.47 K/uL 0.24-0.86 eos # (test code = eos #) 0.03 K/uL 0.04-0.36 L basophil # (test code = baso rosie #) 0.05 K/uL 0.01-0.08 NRBC% (test code = NRBC%) 0 /100 WBC 0-0.2 NRBC# (test code = NRBC#) 0 K/uL [facility]different[facility], [id number] 10:42:00 NeutrophilsBandLymphocyteAtypical LymphMonocyteEosinophilBasophilPlatelet EstimatePlatelet MorphologyPolychromasiaMicrocytosisDifferential comment-P [facility] HospitalComprehensive metabolic 2000 panel - Serum or Plasma 2019-05-21 10:42:00* Test Item Value Reference Range Interpretation Comme nts glucose (test code = glucose) 80 mg/dL 74-106 Urea nitrogen [Mass/volume] in Serum or Plasma (test code = 3094-0) 14 mg/dL 6-20 osmolality calculated,serum (test code = osmolality calculated,serum) 273 mOsm/kg 280-300 L creatinine (test code = creatinine) 0.9 mg/dL 0.50-0.90 glomerular filtration rate ( test code = glomerular filtration rate) >60.00 Urea nitrogen/Creatinine [Ma ss Ratio] in Serum or Plasma (test code = 3097-3) 15.6 12-20 sodium level (test code = so dium level) 137 mmol/L 135-145 Potassium [Moles/volume] in Body fluid (test code = 2821-7) 4.4 mmol/L 3.5-5.2 chloride level (test code = chloride level) 99 mmol/L 98-108 CO2 (test code = CO2) 24 mmol/L 21-32 anion gap (test code = anion gap) 18.4 mEq/L 12-20 calcium level (test code = calcium level) 9.9 mg/dL 8.6-10.0 total protein (test code = t otal protein) 8.5 g/dL 6.6-8.7 albumin (test code = albumin) 5.2 g/dL 3.5-5.2 globulin (test code = globulin) 3.3 gm/dL A/G ratio (test code = A/G ratio) 1.6 >1.0 bilirubin,total (test code = bilirubin,total) 0.7 mg/dL 0.0-1.2 AST/SGOT (test code = AST/SGOT) 22 U/L 15-32 Alanine aminotransferase [Enzymatic activity/volume] in Serum or Plasma (test code = 1742-6) 28 U/L 0-33 Alkaline phosphatase [Enzyma tic activity/volume] in Serum or Plasma (test code = 6768-6) 44 U/L 35-105 [facility]Thyrotropin [Units/volume] in Serum or [id number] 10:42:00* Test Item Value Reference Range Interpretation Comme nts Thyrotropin [Units/volume] i n Serum or Plasma (test code = 3016-3) 1.94 uIU/mL 0.36-3.74 [facility] HospitalThyroxine (T4) free [Mass/volume] in Serum or Plasma 2019-05-21 10:42:00* Test Item Value Reference Range Interpretation Comme nts free T4 (test code = free T4) 1.16 NG/dL 0.93-1.7 [facility] Auto Differential panel - [id number] 10:42:00 * Test Item Value Reference Range Interpretation Comme nts white blood count (test code = white blood count) 5.6 K/uL 4.0-11.5 red blood count (test code = red blood count) 5.12 M/uL 3.80-5.20 hemoglobin (test code = hemoglobin) 14.7 g/dL 10.5-15.7 hematocrit (test code = hematocrit) 46.4 % 34.0-50.0 Erythrocyte mean corpuscular volume [Entitic volume] (test code = 54060-8) 90.6 fL 86-100 mean corpuscular hemoglobin (test code = mean corpuscular hemoglobin) 28.7 pg 26.2-33.4 mean corpuscular HGB conc (t est code = mean corpuscular HGB conc) 31.7 g/dL 30-34 red cell distribution width (test code = red cell distribution width) 12.9 % 12.0-15.5 platelet count (test code = platelet count) 325 K/uL 165-450 mean platelet volume (test c ode = mean platelet volume) 10.9 fL 9.4-12.6 Neutrophils.segmented/100 leukocytes in Blood (test code = 72524-4) 58.2 % 44.4-80.1 Granulocytes Immature [#/vol ume] in Blood (test code = 08487-4) 0.0 K/uL 0.0-0.03 lymphocyte% (test code = lymphocyte%) 31.6 % 10.0-50.0 mono % (test code = mono %) 8.4 % 3.6-12.0 eos % (test code = eos %) 0.5 % 0.0-5.4 Basophils/100 leukocytes in Unspecified specimen (test code = 96527-7) 0.9 % 0.1-1.2 Neutrophils.band form [#/vol ume] in Blood (test code = 90736-5) 3.24 K/uL 1.56-6.13 Lymphocytes [#/volume] in Unspecified specimen by Automated count (test code = 53372-8) 1.8 K/uL 1.18-3.74 mono # (test code = mono #) 0.47 K/uL 0.24-0.86 eos # (test code = eos #) 0.03 K/uL 0.04-0.36 L basophil # (test code = baso rosie #) 0.05 K/uL 0.01-0.08 NRBC% (test code = NRBC%) 0 /100 WBC 0-0.2 NRBC# (test code = NRBC#) 0 K/uL [facility], [id number] 10:42:00 NeutrophilsBandLymphocyteAtypical LymphMonocyteEosinophilBasophilPlatelet EstimatePlatelet MorphologyPolychromasiaMicrocytosisDifferential comment-P [facility]Com[facility] 2000 panel - Serum or Plasma 2019-05-21 10:42:00* Test Item Value Reference Range Interpretation Comme nts glucose (test code = glucose) 80 mg/dL 74-106 Urea nitrogen [Mass/volume] in Serum or Plasma (test code = 3094-0) 14 mg/dL 6-20 osmolality calculated,serum (test code = osmolality calculated,serum) 273 mOsm/kg 280-300 L creatinine (test code = creatinine) 0.9 mg/dL 0.50-0.90 glomerular filtration rate ( test code = glomerular filtration rate) >60.00 Urea nitrogen/Creatinine [Ma ss Ratio] in Serum or Plasma (test code = 3097-3) 15.6 12-20 sodium level (test code = so dium level) 137 mmol/L 135-145 Potassium [Moles/volume] in Body fluid (test code = 2821-7) 4.4 mmol/L 3.5-5.2 chloride level (test code = chloride level) 99 mmol/L 98-108 CO2 (test code = CO2) 24 mmol/L 21-32 anion gap (test code = anion gap) 18.4 mEq/L 12-20 calcium level (test code = calcium level) 9.9 mg/dL 8.6-10.0 total protein (test code = t otal protein) 8.5 g/dL 6.6-8.7 albumin (test code = albumin) 5.2 g/dL 3.5-5.2 globulin (test code = globulin) 3.3 gm/dL A/G ratio (test code = A/G ratio) 1.6 >1.0 bilirubin,total (test code = bilirubin,total) 0.7 mg/dL 0.0-1.2 AST/SGOT (test code = AST/SGOT) 22 U/L 15-32 Alanine aminotransferase [Enzymatic activity/volume] in Serum or Plasma (test code = 1742-6) 28 U/L 0-33 Alkaline phosphatase [Enzyma tic activity/volume] in Serum or Plasma (test code = 6768-6) 44 U/L 35-105 [facility]yrotropin [Units/volume] in Serum or [id number] 10:42:00* Test Item Value Reference Range Interpretation Comme nts Thyrotropin [Units/volume] i n Serum or Plasma (test code = 3016-3) 1.94 uIU/mL 0.36-3.74 [facility] HospitalThyroxine (T4) free [Mass/volume] in Serum or Plasma 2019-05-21 10:42:00* Test Item Value Reference Range Interpretation Comme nts free T4 (test code = free T4) 1.16 NG/dL 0.93-1.7 [facility]
--- NOTE | 2023-11-08 15:47 | RAD REPORT ---
EXAM DESCRIPTION: RAD - Chest Single View - 11/08/2023 3:39 pm CLINICAL HISTORY: CHEST PAIN Chest pain. COMPARISON: <Comparisons> FINDINGS: Portable technique limits examination quality. The lungs are emphysematous but grossly clear. The heart is normal in size. No displaced fractures.Mi ld midthoracic dextroscoliosis. IMPRESSION: No acute intrathoracic process suspected.
[2023-11-08 16:09] LABS: Absolute Eosinophils 0.1 K/uL (0-0.5); Absolute Lymphocytes (CBC) 1.6 K/uL (0.7-4.9); Absolute Monocytes 0.4 K/uL (0.1-1.3); Absolute Neutrophil 4.9 K/uL (1.8-8.0); Basophils % 0.7 % (0-1.3); Eosinophils % 1.1 % (0-4.4); Hematocrit 39.2 % (36.0-45.0); Hemoglobin 13.1 g/dL (12.0-15.0); Lymphocytes % 22.1 % (15.3-44.8); MCH 29.7 pg (27.0-35.0); MCHC 33.5 g/dL (32.0-36.0); MCV 88.7 fL (80-100); MPV 8.3 fL (7.6-11.3); Neutrophils % 70.1 % (41.7-73.7); Nucleated Red Blood Cells % 0.1 % (0-0); Platelets 349 thou/uL (152-406); RBC Red Blood Cell Count 4.42 M/uL (3.86-4.86); Red Cell Distribution Width 14.1 % (12.1-15.2)
[2023-11-08 16:24] LABS: ALT/SGPT 17 U/L (13-56); AST/SGOT 13 U/L (15-37); Alkaline Phosphatase 51 U/L (45-117); Anion Gap 5.6 mEq/L (5.0-15.0); BUN Blood Urea Nitrogen 10 mg/dL (7-18); Bicarbonate 31 mEq/L (21-32); Bilirubin Total 0.3 mg/dL (0.2-1.0); Glomerular Filtration Rate 74 ml/min (=/>90); Glucose Level 109 mg/dL (74-106); Magnesium 2.4 mg/dL (1.6-2.4); Potassium 3.6 mEq/L (3.5-5.1); Sodium Level 138 mEq/L (136-145)
[2023-11-08 16:30] LABS: Bilirubin Direct < 0.2 mg/dL (0-0.2); Bilirubin Indirect, Calculated 0.1 mg/dL (0.2-0.8); Troponin High Sensitivity < 3.0 pg/mL (<58.9)
[2023-11-08] MEDS ORDERED: KETOROLAC 30 MG/ML INJ ONE (16:32)
[2023-11-08 17:50] LABS: Specific Gravity 1.008 (1.005-1.030)
[2023-11-08 17:56] LABS: Specific Gravity 1.008 (1.005-1.030); Urine Bilirubin NEGATIVE (Negative); Urine Blood Negative (Negative); Urine Clarity Turbid (Clear); Urine Color Colorless (Yellow); Urine Glucose NEGATIVE (Negative); Urine Ketones NEGATIVE (Negative); Urine Protein NEGATIVE (Negative); Urine Urobilinogen Normal (Normal)
[2023-11-08 17:57] LABS: Sqamous Epithelial <5 /HPF (None Seen); Urine Bacteria None Seen /HPF (<20); Urine Culture Reflex Order NOT NEEDED; Urine Micro Reflex YN NO BILL MICROSCOPIC; Urine Mucus Slight /HPF (None Seen); Urine Nitrite NEGATIVE (Negative); Urine RBC <5 /HPF (None Seen); Urine WBC <5 /HPF (<5)
--- NOTE | 2023-11-08 18:26 | ER ---
Nurse's Notes [facility] Name: Francesca Menchaca Age: 37 yrs Sex: Female : 1985 Arrival Date: 11/08/2023 Time: 14:57 Bed DX2 Private MD: Diagnosis: Chest pain, unspecified;Dorsalgia, unspecified Presentation: 11/07 15:12 Chief complaint: Patient states: CHEST PAIN RADIATING FROM FRONT TO BACK SINCE LAST db NIGHT. Coronavirus screen: Client denies travel out of the [place] in the last 14 days. At this time, the client does not indicate any symptoms associated with coronavirus-19. Ebola Screen: Patient negative for fever greater than or equal to 101.5 degrees Fahrenheit, and additional compatible Ebola Virus Disease symptoms Patient denies exposure to infectious person. Patient denies travel to an Ebola-affected area in the 21 days before illness onset. No symptoms or risks identified at this time. Initial Sepsis Screen: Does the patient meet any 2 criteria? No. Patient's initial sepsis screen is negative. Does the patient have a suspected source of infection? No. Patient's initial sepsis screen is negative. Risk Assessment: Do you want to hurt yourself or someone else? Patient reports no desire to harm self or others. Onset of symptoms was November 07, 2023. 15:12 Method Of Arrival: Ambulatory db 15:12 Acuity: [place] 2 db Triage Assessment: 15:12 General: Appears in no apparent distress. comfortable, Behavior is calm, cooperative. db Pain: Complains of pain in back and chest. Neuro: Level of Consciousness is awake, alert, obeys commands, Oriented to person, place, time, situation. Cardiovascular: Reports chest pain. Cardiovascular: Reports. Respiratory: Airway is patent Respiratory effort is even, unlabored, Respiratory pattern is regular, symmetrical. Historical: - Allergies: 15:20 No Known Allergies; db - PMHx: 15:20 Hypothyroidism; THYROID CANCER; MITRAL VALVE PROLAPSE; db - PSHx: 15:20 Thyroidectomy; section; RIGHT KNEE SURGERY; db - Immunization history:: Adult Immunizations unknown. - Infectious Disease History:: Denies. - Social history:: Smoking status: Patient denies any tobacco usage or history of. Screenin:43 [facility] ED Fall Risk Assessment (Adult) History of falling in the last 3 months, as6 including since admission No falls in past 3 months (0 pts) Confusion or Disorientation No (0 pts) Intoxicated or Sedated No (0 pts) Impaired Gait No (0 pts) Mobility Assist Device Used No (0 pt) Altered Elimination No (0 pt) Score/Fall Risk Level 0 - 2 = Low Risk Oriented to surroundings, Maintained a safe environment, Educated pt \T\ family on fall prevention, incl call for assistance when getting out of bed, Assessed \T\ reinforced patient's understanding of fall precautions. Abuse screen: Denies threats or abuse. Denies injuries from another. Nutritional screening: No deficits noted. Tuberculosis screening: No symptoms or risk factors identified. Vital Signs: 15:12 BP 114 / 63; Pulse 74; Resp 16; Temp 98.4; Pulse Ox 99% on R/A; Weight 61.23 kg; Height db 5 ft. 9 in. ; 18:45 BP 116 / 70; Pulse 65; Resp 18; Pulse Ox 98% ; as6 15:12 Body Mass Index 19.94 (61.23 kg, 175.26 cm) db ED Course: 14:58 Patient arrived in ED. im 15:04 Jadiel Marquez PA is PHCP. cp 15:04 Jadiel Lofton MD is Attending Physician. cp 15:13 Triage completed. db 15:14 Arm band placed on right wrist. db 15:22 EKG done, by ED staff. db 15:41 XRAY Chest (1 view) In Process Unspecified. EDMS 15:54 Missed attempt(s): 20 gauge in right forearm. Bleeding controlled, band aid applied, db catheter tip intact. 15:57 Inserted saline lock: 22 gauge in left antecubital area, using aseptic technique. Blood db collected. 16:52 Mei Montoya, PADMAJA is Primary Nurse. mb9 17:42 Urine collected: clean catch specimen, clear. aw1 17:42 Test, Urine Sent. aw1 17:42 Urinalysis W/Microscopic Sent. aw1 18:44 Bed in low position. Call light in reach. Provided Education on: follow up. as6 18:44 No provider procedures requiring assistance completed. IV discontinued, intact, as6 bleeding controlled, No redness/swelling at site. Pressure dressing applied. Administered Medications: 16:38 Drug: Ketorolac IVP 15 mg IVP once Route: IVP; Site: left antecubital; db 18:43 Follow up: Response: No adverse reaction as6 Medication: 18:44 VIS not applicable for this client. as6 Outcome: 18:26 Discharge ordered by . cp 18:44 Discharged to home ambulatory, with family, as6 18:44 Condition: stable 18:44 Discharge instructions given to patient, Instructed on discharge instructions, follow up and referral plans. medication usage, Demonstrated understanding of instructions, follow-up care, medications, Prescriptions given X 1, 18:45 Patient left the ED. as6 Signatures: Dispatcher [employer] EDMS Jadiel Marquez PA PA cp Slawson, Ashby, RN RN as6 Dang Allen RN RN Mei Feliciano RN RN mb9 Mckenna Cortes Alyssa aw1 Corrections: (The following items were deleted from the chart) 15:20 15:12 BP 114 / 63; Pulse 74bpm; Resp 16bpm; Pulse Ox 99% RA; db db
--- NOTE | 2023-11-08 18:26 | EDPHYS ---
Physician Documentation [facility] Name: Francesca Menchaca Age: 37 yrs Sex: Female : 1985 Arrival Date: 11/08/2023 Time: 14:57 Bed DX2 Private MD: ED Physician Jadiel Lofton HPI: 11/07 15:20 This 37 yrs old Female presents to ER via Ambulatory with complaints of Chest Pain, cp Back Pain, Fatigue. 15:20 The patient or guardian reports chest pain that is located primarily in the anterior cp chest wall, left. The pain radiates to the left shoulder, left back. 15:20 Associated signs and symptoms: Pertinent positives: fatigue, Pertinent negatives: cp abdominal pain, cough, diaphoresis, dizziness, lower extremity pain, lower extremity swelling, lightheadedness, near syncope, palpitations, shortness of breath, syncope. The chest pain is described as a pressure. Duration: The patient or guardian reports a single episode, that is still ongoing. Severity of pain: in the emergency department the pain is unchanged despite home interventions. Historical: - Allergies: 15:20 No Known Allergies; db - PMHx: 15:20 Hypothyroidism; THYROID CANCER; MITRAL VALVE PROLAPSE; db - PSHx: 15:20 Thyroidectomy; section; RIGHT KNEE SURGERY; db - Immunization history:: Adult Immunizations unknown. - Infectious Disease History:: Denies. - Social history:: Smoking status: Patient denies any tobacco usage or history of. ROS: 15:25 Constitutional: Negative for body aches, chills, fever, poor PO intake, cp 15:25 Cardiovascular: Positive for chest pain, Negative for edema, palpitations, cp 15:25 Respiratory: Negative for cough, shortness of breath, wheezing, 15:25 Abdomen/GI: Negative for abdominal pain, vomiting, diarrhea, constipation, 15:25 Back: Positive for radiated pain, 15:25 Skin: Negative for rash, 15:25 Neuro: Negative for altered mental status, dizziness, headache, syncope, near syncope, weakness, 15:25 All other systems are negative, Exam: 15:25 ECG was reviewed by the Attending Physician. cp 15:30 Constitutional: The patient appears in no acute distress, alert, awake, cp non-diaphoretic, non-toxic, well developed, well nourished, 15:30 Head/Face: Normocephalic, atraumatic. 15:30 Eyes: Periorbital structures: appear normal, Conjunctiva: normal, no exudate, no injection, Sclera: no appreciated abnormality, Lids and lashes: appear normal, bilaterally, 15:30 ENT: External ear(s): are unremarkable, Nose: is normal, Mouth: Lips: moist, Oral mucosa: pink and intact, moist, Posterior pharynx: is normal, airway is patent, no erythema, no exudate, 15:30 Chest/axilla: Inspection: normal, 15:30 Cardiovascular: Rate: normal, Rhythm: regular, Edema: is not appreciated, JVD: is not appreciated, 15:30 Respiratory: the patient does not display signs of respiratory distress, Respirations: normal, no use of accessory muscles, no retractions, labored breathing, is not present, Breath sounds: are clear throughout, no decreased breath sounds, no stridor, no wheezing, 15:30 Abdomen/GI: Inspection: abdomen appears normal, Palpation: abdomen is soft and non-tender, in all quadrants, 15:30 Back: pain, that is mild, of the left scapular area and left subscapular area, ROM is normal, 15:30 Skin: no rash present. 15:30 Neuro: Orientation: to person, place \T\ time. Mentation: is normal, Motor: moves all fours, strength is normal, Sensation: is normal, Vital Signs: 15:12 BP 114 / 63; Pulse 74; Resp 16; Temp 98.4; Pulse Ox 99% on R/A; Weight 61.23 kg; Height db 5 ft. 9 in. ; 18:45 BP 116 / 70; Pulse 65; Resp 18; Pulse Ox 98% ; as6 15:12 Body Mass Index 19.94 (61.23 kg, 175.26 cm) db MDM: 15:11 Patient medically screened. 16:00 Differential diagnosis: acute myocardial infarction, acute pericarditis, cp costochondritis, esophagitis, gastritis, pericarditis, pleurisy, pneumonia, pneumothorax, pulmonary embolus. 18:25 Data reviewed: vital signs, nurses notes, lab test result(s), EKG, radiologic studies, plain films. 18:25 I considered the following discharge prescriptions or medication management in the emergency department Medications were administered in the Emergency Department. See MAR. Independent interpretation of the following test(s) in the Emergency Department EKG: See my EKG interpretation above. Counseling: I had a detailed discussion with the patient and/or guardian regarding the historical points, exam findings, and any diagnostic results supporting the discharge/admit diagnosis, lab results, radiology results, the need for outpatient follow up, a family practitioner, to return to the emergency department if symptoms worsen or persist or if there are any questions or concerns that arise at home. 18:25 Response to treatment: the patient's symptoms have markedly improved after treatment, cp and as a result, I will discharge patient. Special discussion: Based on the patient's history, exam, and Dx evaluation, there is no indication for emergent intervention or inpatient Tx. It is understood by the patient/guardian that if the Sx's persist or worsen they need to return immediately for re-evaluation. 11/07 15:16 Order name: Basic Metabolic Panel; Complete Time: 18:21 cp 11/07 18:21 Interpretation: Normal except: GLUC 109; GFR 74. 11/07 15:16 Order name: CBC with Diff; Complete Time: 18:21 cp 11/07 15:16 Order name: D-Dimer; Complete Time: 18:21 cp 11/07 15:16 Order name: LFT's; Complete Time: 18:21 cp 11/07 15:16 Order name: Magnesium; Complete Time: 18:21 cp 11/07 15:16 Order name: Troponin HS; Complete Time: 18:21 cp 11/07 15:16 Order name: Test, Urine; Complete Time: 18:21 cp 11/07 18:21 Interpretation: Reviewed. 11/07 15:16 Order name: Urinalysis W/Microscopic; Complete Time: 18:21 cp 11/07 15:16 Order name: XRAY Chest (1 view); Complete Time: 18:21 cp 11/07 15:16 Order name: EKG; Complete Time: 15:17 cp 11/07 15:16 Order name: Cardiac monitoring; Complete Time: 18:43 cp 11/07 15:16 Order name: EKG - Nurse/Tech; Complete Time: 15:22 cp 11/07 15:16 Order name: IV Saline Lock; Complete Time: 15:59 cp 11/07 15:16 Order name: Labs collected and sent; Complete Time: 15:59 cp 11/07 15:16 Order name: O2 Per Protocol; Complete Time: 18:43 cp 11/07 15:16 Order name: O2 Sat Monitoring; Complete Time: 18:43 cp EC:25 Rate is 67 beats/min. Rhythm is regular. OK interval is normal. QRS interval is normal. cp QT interval is normal. T waves are Inverted in lead aVR. Interpreted by me. Reviewed by me. Administered Medications: 16:38 Drug: Ketorolac IVP 15 mg IVP once Route: IVP; Site: left antecubital; db 18:43 Follow up: Response: No adverse reaction as6 Disposition Summary: 11/08/23 18:26 Discharge Ordered Notes: Location: Home cp Problem: new cp Symptoms: have improved cp Condition: Stable cp Diagnosis - Chest pain, unspecified cp - Dorsalgia, unspecified cp Followup: cp - With: Private Physician - When: 2 - 3 days - Reason: Recheck today's complaints Discharge Instructions: - Discharge Summary Sheet cp - Acute Back Pain, Adult cp - Nonspecific Chest Pain, Adult cp - Aspirin and Your Heart cp Forms: - Medication Reconciliation Form cp - Antibiotic Education cp - Prescription Opioid Use cp - Patient Portal Instructions cp - Leadership Thank You Letter cp Prescriptions: - Ibuprofen 600 mg Oral tablet - take 1 tablet ORAL route every 8 hours As needed take with food; 30 tablet; cp Refills: 0, Product Selection Permitted Addendum: 11/11/2023 07:42 Co-signature as Attending Physician, Jadiel Lofton MD I agree with the assessment and c fajardo plan of care. Signatures: Dispatcher [employer] Jadiel Delgadillo MD MD cha Page, Corey, PA PA cp Dang Allen, RN RN Donny Smith RN as6 Corrections: (The following items were deleted from the chart) 11/07 15:18 15:17 BASIC METABOLIC PANEL+C.LAB.BRZ ordered. EDMS EDMS 15:18 15:17 CBC+H.LAB.BRZ ordered. EDMS EDMS 15:18 15:17 D-DIMER+COAG.LAB.BRZ ordered. EDMS EDMS 15:18 15:17 HEPATIC FUNCTION+C.LAB.BRZ ordered. EDMS EDMS 15:18 15:17 MAGNESIUM+C.LAB.BRZ ordered. EDMS EDMS 15: 15:17 Troponin High Sensitivity+C.LAB.BRZ ordered. EDMS EDMS : 15:17 Test, Urine+UC.LAB.BRZ ordered. EDMS EDMS : 15:17 Urinalysis W/Microscopic+U.LAB.BRZ ordered. EDMS EDMS
[2023-11-08 19:42] VITALS: BP 116/70; TEMP 98.4; O2SAT 98
--- NOTE | 2023-11-12 10:36 | EKG ---
Test Date: 2023-11-08 Test Time: 15:19:56 Physical Testing Supervisor: LOLIS MEASUREMENT RESULTS: Intervals: Rate: 67 HI: 130 QRSD: 92 QT: 430 QTc: 454 [place]: P: 76 HI: 130 QRS: 73 T: 74 INTERPRETIVE STATEMENTS: Normal sinus rhythm Cannot rule out Anterior infarct, age undetermined Abnormal ECG Compared to ECG 07/06/2022 02:28:41 Myocardial infarct finding now present ST (T wave) deviation no longer present Prolonged QT interval no longer present Electronically Signed On 11-12-23 10:34:58 CDT by Vasyl Baxter
== END 2023-11-08 18:45 | disposition home or self-care (01) ==
LOC: ER 14:57
DX: R07.9 Chest pain, unspecified (principal); M54.9 Dorsalgia, unspecified
CPT/HCPCS: 36415; 71045; 80048; 80076; 81001; 81025; 83735; 84484; 85025; 85379; 93005; 96374; 99284